=== PATIENT | female | born 1960 | race Caucasian/White ===

== ENCOUNTER → 2016-05-20 | Outpatient (CLI) | payer OTHER | LOC: M WUC 15:27 | PROVIDERS: ATTEND Physician Assistant Medical | DX: R53.83 Other fatigue (principal); R25.2 Cramp and spasm ==

== ENCOUNTER → 2016-06-20 | Outpatient (CLI) | payer OTHER ==
--- NOTE | 2016-06-20 11:24 | REPMRS ---
Patient History The patient states she had a clinical breast exam in Patient is postmenopausal. No known family history of cancer. Digital Woman Screen Mammo: June 20, 2016 - Exam #: [id number] Bilateral CC and MLO view(s) were taken. Technologist: Val Kunz, Technologist Prior study comparison: February 02, 2015, digital woman screen mammo performed at [facility] to [facility]. July 29, 2009, digital bilateral screening mammo performed at [facility] to [facility]. FINDINGS: There are scattered fibroglandular densities. There has been no change in the appearance of the mammogram from the prior studies. There is a mild amount of scattered fibroglandular density which is fairly symmetric. There is no interval development of dominant mass, architectural distortion, or clustered microcalcification suggestive of malignancy. ASSESSMENT: BI-RADS/ACR category 1 mammogram. Negative. Recommendation Routine screening mammogram in 1 year (for women over age 40). This mammogram was interpreted with the aid of an FDA-approved computer-aided dectection system. Electronically Signed By: Srini Noe MD 06/20/16 1124
== END ==
LOC: M WHC 08:54
PROVIDERS: ATTEND Nurse Practitioner Family
DX: Z12.31 Encounter for screening mammogram for malignant neoplasm of breast (principal); Z78.0 Asymptomatic menopausal state

== ENCOUNTER → 2016-08-15 | Outpatient (CLI) | payer OTHER ==
[2016-08-15 16:56] LABS: ANION GAP 2 MEQ/L (8-16); BLOOD UREA NITROGEN 20 MG/DL (7-18); CALCIUM LEVEL 9.3 MG/DL (8.5-10.1); CARBON DIOXIDE LEVEL 32 MEQ/L (21-32); CHLORIDE LEVEL 109 MEQ/L (98-107); CHOLESTEROL LEVEL 257 MG/DL (<200); CREATININE FOR GFR 0.94 MG/DL (0.55-1.02); FREE T4 0.98 NG/DL (0.76-1.46); GLOMERULAR FILTRATION RATE > 60.0 (>51); GLUCOSE, FASTING 93 MG/DL (70-105); MAGNESIUM LEVEL 2.5 MG/DL (1.8-2.4); SODIUM LEVEL 143 MEQ/L (136-145); TRIGLYCERIDES LEVEL 124 MG/DL (<150)
== END ==
LOC: M WUC 12:46
PROVIDERS: ATTEND Family Medicine
DX: R25.2 Cramp and spasm (principal); R63.5 Abnormal weight gain; Z13.6 Encounter for screening for cardiovascular disorders

== ENCOUNTER 2017-02-17 06:49 | Day surgery (SDC) | payer OTHER ==
[~2017-02-17] VITALS: Ht 160 cm; Wt 78.2 kg
[~2017-02-17 06:49] MED LIST: MULTCAP8 PO
[2017-02-17] MEDS ORDERED: LR 1,000 ML IV SCH ×2 (07:00→10:30)
[2017-02-17] MEDS ORDERED: ROCURONIUM BROMIDE 50 MG/5 ML VIAL/SYRINGE As Ordered ONE (07:59)
[2017-02-17] MEDS ORDERED: LIDOCAINE 2% INJ 100 MG/5 ML SDV (FOR ANES.) As Ordered ONE (07:59)
[2017-02-17] MEDS ORDERED: ONDANSETRON 4MG/2ML VIAL (J2405) As Ordered ONE ×2 (07:59→12:18)
[2017-02-17] MEDS ORDERED: PROPOFOL 200 MG/20 ML VIAL As Ordered ONE (07:59)
[2017-02-17] MEDS ORDERED: MIDAZOLAM INJ 2 MG/2 ML VIAL (J2250) As Ordered ONE (07:59)
[2017-02-17] MEDS ORDERED: fentaNYL 100 MCG/2 ML INJECTION (J3010) As Ordered ONE (08:00)
[2017-02-17] MEDS ORDERED: SEVOFLURANE INHAL SOLN 250 ML BTL As Ordered ONE (08:39)
[2017-02-17] MEDS ORDERED: CONRAY-60 60% 50ML VIAL (Q9961) As Ordered ONE (08:41)
[2017-02-17] MEDS ORDERED: GLUCAGON FOR INJ 1 MG VIAL (J1610) As Ordered ONE (08:41)
[2017-02-17] MEDS ORDERED: BUPIVACAINE/EPIN 0.25% 30 ML VIAL As Ordered ONE (08:41)
[2017-02-17] MEDS ORDERED: PHENYLephrine HCL 500 MCG/5 ML (100MCG/ML) SYRINGE (J2370) As Ordered ONE (09:05)
[2017-02-17] MEDS ORDERED: dexameTHASONE 4 MG/ML 1ML VIAL (J1100) As Ordered ONE (09:07)
[2017-02-17] MEDS ORDERED: ePHEDrine SULFATE 25 MG/5 ML(5MG/ML) SYRINGE As Ordered ONE (09:09)
[2017-02-17] MEDS ORDERED: NEOSTIGMINE 10 MG/10 ML VIAL (J2710) As Ordered ONE (09:29)
[2017-02-17] MEDS ORDERED: GLYCOPYRROLATE INJ 0.2 MG/ML 2 ML VIAL As Ordered ONE (09:30)
[2017-02-17] MEDS ORDERED: KETOROLAC 60 MG/2 ML VIAL (J1885) As Ordered ONE (09:33)
[2017-02-17] MEDS ORDERED: SUGAMMADEX SODIUM 500 MG/5 ML VIAL (BRIDION) As Ordered ONE (09:42)
--- NOTE | 2017-02-17 09:57 | RO ---
DATE OF PROCEDURE: 02/17/2017 PREPROCEDURE DIAGNOSIS: Symptomatic gallstones. POSTPROCEDURE DIAGNOSIS: Symptomatic gallstones. PROCEDURE: Laparoscopic cholecystectomy. SURGEON: Dr. Emilio Garrison. 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 ESTIMATED BLOOD LOSS: Minimal. FLUIDS: Crystalloid. DESCRIPTION OF OPERATION: The patient was brought to the operating room and was given general anesthesia. After adequate anesthesia and preoperative antibiotics were given, the patient was prepped and draped in the usual sterile fashion. Next, a supraumbilical incision was made with a skin knife. Blunt dissection was carried down to fascia. Fascia was grasped with Josiah clamps, elevated and Veress needle placed into the abdominal cavity and insufflated to 15 mm of pressure. A dilating 10 mm trocar was placed at the umbilicus and under direct visualization, an epigastric and two lateral trocars were placed. Gallbladder was grasped, retracted superiorly and the neck of the gallbladder was cleared of adhesions from the duodenum/end of the stomach to the gallbladder. These were taken on mostly with blunt dissection but some loose areolar tissue was taken down with hook cautery as well and eventually the neck of the gallbladder was cleared of peritoneum anteriorly and laterally and then once the gallbladder was retracted laterally, the medial aspect of it was cleared of peritoneum where the cystic artery and cystic duct was well visualized. A good window behind it, the neck of the gallbladder was created, then a critical view of safety was obtained at this point and after identifying the cystic duct nicely and isolating it for a relatively good distance. The cystic duct was clipped proximally and distally and transected. The cystic artery was clipped proximally and distally and transected. The gallbladder was removed from the gallbladder bed using electrocautery and placed in an Endo Catch bag and brought out through the umbilicus. The right upper quadrant was copiously irritated until clear. All of the incisions were closed with #4-0 Vicryl after the umbilicus was closed with #0 Vicryl at the fascial layer. Steri-Strips and a dry sterile dressing was applied. The patient was awakened, extubated and brought to the recovery room awake, alert and hemodynamically stable. Sponge and needle counts were correct times two.
[2017-02-17] MEDS ORDERED: PERCOCET 5MG/325MG TAB As Ordered ONE (10:07)
[2017-02-17] MEDS ORDERED: MEPERIDINE INJ 25 MG/ML VIAL (J2175) IV PRN (10:30)
[2017-02-17] MEDS ORDERED: PERCOCET 5MG/325MG TAB PO PRN (10:30)
[2017-02-17] MEDS ORDERED: fentaNYL 100 MCG/2 ML INJECTION (J3010) IV PRN (10:30)
[2017-02-17] MEDS ORDERED: ONDANSETRON 4MG/2ML VIAL (J2405) IV PRN (10:30)
[2017-02-17] MEDS ORDERED: METOCLOPRAMIDE INJ 10MG/2ML VIAL (J2765) IV PRN (10:30)
[2017-02-17 12:45] VITALS: BP 113/78
== END 2017-02-17 13:00 | disposition home or self-care (01) ==
LOC: M SDC 06:49
PROVIDERS: ATTEND Surgery
DX: K80.10 Calculus of gallbladder with chronic cholecystitis without obstruction (principal); K21.9 Gastro-esophageal reflux disease without esophagitis; J45.909 Unspecified asthma, uncomplicated; Z90.710 Acquired absence of both cervix and uterus; Z86.2 Personal history of diseases of the blood and blood-forming organs and certain disorders involving the immune mechanism
CPT/HCPCS: 47562; 88304; J0690; J1100; J1610; J1885; J2250; J2370; J2405; J3010

== ENCOUNTER 2017-03-26 11:45 | Emergency (ER) | payer OTHER ==
[~2017-03-26] VITALS: Ht 162.6 cm; Wt 77.3 kg
[2017-03-26] MEDS ORDERED: KETOROLAC 30 MG/ML VIAL (J1885) IV ONE (12:30)
[2017-03-26 12:44] LABS: BASO % 0.6 % (0.0-1.0); EOS # 0.3 10^3/uL (0.0-0.50); EOS % 4.3 % (0.0-3.0); IMMATURE GRANULOCYTE % 0.3 % (0-0); LYMPH # 2.9 10^3/uL (1.5-4.5); LYMPH % 46.7 % (24.0-44.0); MEAN CORPUSCULAR HEMOGLOBIN 30.1 pg (27.0-33.0); MEAN CORPUSCULAR HGB CONC 33.3 g/dl (32.0-36.5); MEAN CORPUSCULAR VOLUME 90.5 fl (80.0-96.0); MONO # 0.5 10^3/uL (0.0-0.8); NEUTROPHILS # 2.5 10^3/uL (1.8-7.7); NEUTROPHILS % 40.1 % (36.0-66.0); PLATELET COUNT, AUTOMATED 260 10^3/uL (150-450); WHITE BLOOD COUNT 6.3 10^3/uL (4.0-10.0)
[2017-03-26 13:06] LABS: ALBUMIN/GLOBULIN RATIO 1.25 (1.00-1.93); ALKALINE PHOSPHATASE 90 U/L (45-117); ALT/SGPT 34 U/L (12-78); AMYLASE 45 U/L (25-115); ANION GAP 8 MEQ/L (8-16); AST/SGOT 21 U/L (7-37); BILIRUBIN,DIRECT 0.1 MG/DL (0.0-0.2); BILIRUBIN,TOTAL 0.7 MG/DL (0.2-1.0); BLOOD UREA NITROGEN 19 MG/DL (7-18); CALCIUM LEVEL 8.8 MG/DL (8.5-10.1); CARBON DIOXIDE LEVEL 26 MEQ/L (21-32); CHLORIDE LEVEL 108 MEQ/L (98-107); GLOMERULAR FILTRATION RATE > 60.0 (>51); GLUCOSE, FASTING 97 MG/DL (70-105); POTASSIUM SERUM 4.5 MEQ/L (3.5-5.1); SODIUM LEVEL 142 MEQ/L (136-145); TOTAL PROTEIN 7.2 GM/DL (6.4-8.2)
--- NOTE | 2017-03-26 14:21 | REP ---
CT abdomen pelvis without IV or bowel contrast: There are no comparisons. The visualized lung aparicio are unremarkable. The unenhanced hepatic parenchyma, pancreas and spleen are unremarkable. There are surgical clips in the gallbladder fossa. The adrenals and kidneys are unremarkable. Abdominal aorta is unremarkable. There is no bowel distension. Mesentery is unremarkable. Pelvis: There is an appendicolith. The appendix is otherwise unremarkable. There are cecal diverticulum without diverticulitis. There are occasional diverticula in the descending colon without diverticulitis. There is a hysterectomy. Vaginal cuff and adnexa are unremarkable. The bladder is nondistended and cannot be evaluated. Impression: Cholecystectomy. The cecum and descending colon and sigmoid colon diverticula without diverticulitis. Hysterectomy. The appendix contains an appendicolith but is otherwise unremarkable. No ascites or adenopathy. No bowel distension or obstruction. No hydronephrosis. Otherwise, negative CT of the abdomen pelvis. Signed by Anil Ibarra MD 03/26/2017 02:13 P
[2017-03-26] MEDS ORDERED: NAPR500T PO (14:34)
[2017-03-26 14:45] VITALS: BP 118/82
== END 2017-03-26 14:43 | disposition home or self-care (01) ==
LOC: M ED 11:45
DX: S39.011A Strain of muscle, fascia and tendon of abdomen, initial encounter (principal); S29.012A Strain of muscle and tendon of back wall of thorax, initial encounter; X50.0XXA Overexertion from strenuous movement or load, initial encounter; Y92.89 Other specified places as the place of occurrence of the external cause; Y93.89 Activity, other specified; Y99.8 Other external cause status; E66.9 Obesity, unspecified; Z88.5 Allergy status to narcotic agent
CPT/HCPCS: 74176; 80048; 80076; 81001; 82150; 83690; 85025; 96374; 99284; J1885

== ENCOUNTER → 2017-06-01 | Outpatient (REF) | payer OTHER ==
[2017-06-01 12:52] LABS: INFLUENZA A AMPLIFICATION NEGATIVE (NEGATIVE); INFLUENZA B AMPLIFICATION NEGATIVE (NEGATIVE)
== END ==
LOC: M LAB REF 11:35
DX: Z11.59 Encounter for screening for other viral diseases (principal)

== ENCOUNTER → 2020-01-30 | Outpatient (CLI) | payer OTHER ==
[~2020-01-30] MED LIST changes: +NAPR-837 PO
--- NOTE | 2020-01-30 12:18 | REPMRS ---
Patient History The patient states she had a clinical breast exam in 01/2020. Patient is postmenopausal. No known family history of cancer. No Hormone Replacement Therapy 3D TOMOSYNTHESIS WAS PERFORMED. [facility]%. Volpara breast density b. Digital Woman Screen Mammo: January 30, 2020 - Exam #: [id number] Bilateral CC and MLO view(s) were taken. Technologist: Armida Brennan, Technologist Prior study comparison: June 20, 2016, digital woman screen mammo performed at [facility]. February 02, 2015, digital woman screen mammo performed at [facility]. FINDINGS: There are scattered fibroglandular densities. There has been no change in the appearance of the mammogram from the prior studies. There is a mild amount of residual fibroglandular tissue which is fairly symmetric. There is no interval development of dominant mass, architectural distortion, or clustered microcalcification suggestive of malignancy. Assessment: BI-RADS/ACR category 1 mammogram. Negative Mammogram. Recommendation Routine screening mammogram in 1 year (for women over age 40). This mammogram was interpreted with the aid of an FDA-approved computer-aided dectection system. Electronically Signed By: Anil Muir MD 01/30/20 1810
== END ==
LOC: M WHC 10:58
PROVIDERS: ATTEND Nurse Practitioner Family
DX: Z12.31 Encounter for screening mammogram for malignant neoplasm of breast (principal)

== ENCOUNTER → 2021-03-11 | Outpatient (CLI) | payer OTHER, SELFPAY | LOC: M WHC 08:13 | PROVIDERS: ATTEND Nurse Practitioner Women's Health | DX: Z12.31 Encounter for screening mammogram for malignant neoplasm of breast (principal) ==

== ENCOUNTER → 2022-06-17 | Outpatient (CLI) | payer OTHER | LOC: M WHC 08:04 | PROVIDERS: ATTEND Nurse Practitioner Family | DX: Z12.31 Encounter for screening mammogram for malignant neoplasm of breast (principal) ==

== ENCOUNTER → 2022-06-30 | Outpatient (CLI) | payer OTHER ==
[2022-06-30 14:02] LABS: BASO % 0.6 % (0.0-1.0); EOS # 0.2 10^3/uL (0.0-0.5); EOS % 3.4 % (0.0-3.0); HEMATOCRIT 43.4 % (36.0-47.0); HEMOGLOBIN 14.4 g/dl (12.0-15.5); LYMPH # 2.6 10^3/uL (1.5-5.0); MEAN CORPUSCULAR HEMOGLOBIN 30.9 pg (27.0-33.0); MEAN CORPUSCULAR HGB CONC 33.2 g/dl (32.0-36.5); MEAN CORPUSCULAR VOLUME 93.1 fl (80.0-96.0); MONO # 0.5 10^3/uL (0.0-0.8); MONO % 7.9 % (2.0-8.0); NEUTROPHILS # 3.4 10^3/uL (1.5-8.5); NEUTROPHILS % 49.7 % (36.0-66.0); PLATELET COUNT, AUTOMATED 244 10^3/uL (150-450); RED BLOOD COUNT 4.66 10^6/uL (4.00-5.40); WHITE BLOOD COUNT 6.7 10^3/uL (4.0-10.0)
[2022-06-30 14:35] LABS: FREE T4 1.08 NG/DL (0.89-1.76); THYROID STIMULATING HORMONE 2.614 uIU/ML (0.55-4.78)
[2022-06-30 14:44] LABS: ALBUMIN 3.8 G/DL (3.2-5.2); ALKALINE PHOSPHATASE 80 U/L (46-116); ALT/SGPT 25 U/L (7.0-40); AST/SGOT 16 U/L (<34); BILIRUBIN,TOTAL 0.6 MG/DL (0.3-1.2); BLOOD UREA NITROGEN 20 MG/DL (9-23); CALCIUM LEVEL 9.3 MG/DL (8.5-10.1); CARBON DIOXIDE LEVEL 29 MMOL/L (20-31); CHLORIDE LEVEL 107 MMOL/L (98-107); CHOLESTEROL LEVEL 246 MG/DL (<200); CREATININE FOR GFR 0.88 MG/DL (0.55-1.30); GLOMERULAR FILTRATION RATE > 60.0 (>51); GLUCOSE, FASTING 94 MG/DL (60-100); LDL CHOLESTEROL 164.6 MG/DL (<100); POTASSIUM SERUM 4.7 MMOL/L (3.5-5.1); SODIUM LEVEL 141 MMOL/L (136-145); TOTAL PROTEIN 6.5 G/DL (5.7-8.2); TRIGLYCERIDES LEVEL 92 MG/DL (<150)
== END ==
LOC: M PLALAB 10:05
PROVIDERS: ATTEND Physician Assistant
DX: Z00.00 Encounter for general adult medical examination without abnormal findings (principal); R63.5 Abnormal weight gain

== ENCOUNTER → 2023-07-03 | Outpatient (CLI) | payer OTHER | LOC: M WHC 10:35 | PROVIDERS: ATTEND Nurse Practitioner Family | DX: Z12.31 Encounter for screening mammogram for malignant neoplasm of breast (principal) ==

== ENCOUNTER → 2023-07-03 | Outpatient (REF) | payer OTHER | LOC: M SFHCWAGY 10:39 | PROVIDERS: ATTEND Nurse Practitioner Family | DX: Z12.72 Encounter for screening for malignant neoplasm of vagina (principal) ==

== ENCOUNTER → 2023-08-08 | Outpatient (CLI) | payer OTHER ==
[2023-08-08 14:00] LABS: BASO % 0.6 % (0.0-1.0); EOS # 0.4 10^3/uL (0.0-0.5); EOS % 5.4 % (0.0-3.0); HEMATOCRIT 40.8 % (36.0-47.0); HEMOGLOBIN 13.4 g/dl (12.0-15.5); LYMPH # 2.4 10^3/uL (1.5-5.0); LYMPH % 35.9 % (24.0-44.0); MEAN CORPUSCULAR HGB CONC 32.8 g/dl (32.0-36.5); MEAN CORPUSCULAR VOLUME 94.4 fl (80.0-96.0); MONO # 0.5 10^3/uL (0.0-0.8); MONO % 7.1 % (2.0-8.0); NEUTROPHILS # 3.4 10^3/uL (1.5-8.5); NEUTROPHILS % 50.5 % (36.0-66.0); PLATELET COUNT, AUTOMATED 239 10^3/uL (150-450); RED BLOOD COUNT 4.32 10^6/uL (4.00-5.40); WHITE BLOOD COUNT 6.7 10^3/uL (4.0-10.0)
[2023-08-08 14:16] LABS: HEMOGLOBIN A1c 5.2 % (4.0-6.0)
[2023-08-08 14:30] LABS: ALBUMIN 3.6 G/DL (3.2-5.2); ALKALINE PHOSPHATASE 75 U/L (46-116); ALT/SGPT 26 U/L (7.0-40); AST/SGOT 21 U/L (<34); BILIRUBIN,TOTAL 0.4 MG/DL (0.3-1.2); BLOOD UREA NITROGEN 20 MG/DL (9-23); CALCIUM LEVEL 9.7 MG/DL (8.3-10.6); CARBON DIOXIDE LEVEL 29 MMOL/L (20-31); CHLORIDE LEVEL 106 MMOL/L (98-107); CHOLESTEROL LEVEL 244 MG/DL (<200); CHOLESTEROL RISK RATIO 3.87 (<5); CREATININE FOR GFR 0.89 MG/DL (0.55-1.30); FREE T4 1.05 NG/DL (0.89-1.76); GLOMERULAR FILTRATION RATE > 60.0 (>45); GLUCOSE, FASTING 93 MG/DL (74-106); LDL CHOLESTEROL 162.2 MG/DL (<100); POTASSIUM SERUM 4.6 MMOL/L (3.5-5.1); SODIUM LEVEL 140 MMOL/L (136-145); TOTAL PROTEIN 6.2 G/DL (5.7-8.2); TRIGLYCERIDES LEVEL 94 MG/DL (<150)
[2023-08-08 14:31] LABS: VITAMIN B12 LEVEL 486 PG/ML (211-911)
[2023-08-08 14:32] LABS: TOTAL 25(OH) VITAMIN D 30.7 NG/ML (20.0-100.0)
== END ==
LOC: M PLALAB 08:37
PROVIDERS: ATTEND Physician Assistant
DX: Z00.00 Encounter for general adult medical examination without abnormal findings (principal); Z13.220 Encounter for screening for lipoid disorders; Z13.1 Encounter for screening for diabetes mellitus; E66.9 Obesity, unspecified; G47.62 Sleep related leg cramps; Z68.39 Body mass index [BMI] 39.0-39.9, adult

== ENCOUNTER → 2023-08-08 | Outpatient (CLI) | payer OTHER | LOC: M WHC 08:35 | PROVIDERS: ATTEND Nurse Practitioner Family | DX: Z12.31 Encounter for screening mammogram for malignant neoplasm of breast (principal) ==

== ENCOUNTER → 2024-07-24 | Outpatient (CLI) | payer OTHER ==
[2024-07-24 14:13] LABS: HEMOGLOBIN 13.8 g/dl (12.0-15.5); MEAN CORPUSCULAR HEMOGLOBIN 30.6 pg (27.0-33.0); MEAN CORPUSCULAR HGB CONC 32.9 g/dl (32.0-36.5); MEAN CORPUSCULAR VOLUME 93.1 fl (80.0-96.0); PLATELET COUNT, AUTOMATED 171 10^3/uL (150-450); RED BLOOD COUNT 4.51 10^6/uL (4.00-5.40); WHITE BLOOD COUNT 4.5 10^3/uL (4.0-10.0)
[2024-07-24 14:30] LABS: URIC ACID 3.9 MG/DL (3.1-7.8)
[2024-07-24 14:33] LABS: C REACTIVE PROTEIN QUANTITATIV 0.61 MG/DL (<1.0); IRON (FE) 179 UG/DL (50-170); PERCENT SATURATION 66.3 % (13.2-45.0); RHEUMATOID FACTOR QUANT < 3.5 IU/ML (<14); TOTAL IRON BINDING CAPACITY 270 UG/DL (250-425)
[2024-07-24 14:34] LABS: ALBUMIN 3.7 G/DL (3.2-5.2); ALKALINE PHOSPHATASE 75 U/L (35-104); ALT/SGPT 29 U/L (7.0-40); AST/SGOT 21 U/L (<34); BILIRUBIN,TOTAL 0.4 MG/DL (0.3-1.2); BLOOD UREA NITROGEN 11 MG/DL (9-23); CARBON DIOXIDE LEVEL 27 MMOL/L (20-31); CHLORIDE LEVEL 105 MMOL/L (98-107); CHOLESTEROL LEVEL 211 MG/DL (<200); CHOLESTEROL RISK RATIO 3.58 (<5); CREATININE FOR GFR 0.89 MG/DL (0.55-1.30); FERRITIN 189.3 NG/ML (7.3-270.7); FOLATE > 24.0 NG/ML (>5.4); FREE T4 1.25 NG/DL (0.89-1.76); GLOMERULAR FILTRATION RATE 73.7 (>45); GLUCOSE, FASTING 92 MG/DL (74-106); HDL CHOLESTEROL 58.9 MG/DL (>40); LDL CHOLESTEROL 125.7 MG/DL (<100); NON-HDL-C 152.1 MG/DL; POTASSIUM SERUM 4.1 MMOL/L (3.5-5.1); SODIUM LEVEL 139 MMOL/L (136-145); TOTAL PROTEIN 6.5 G/DL (5.7-8.2); TRIGLYCERIDES LEVEL 132 MG/DL (<150); VITAMIN B12 LEVEL 524 PG/ML (211-911)
[2024-07-24 14:37] LABS: TOTAL 25(OH) VITAMIN D 62.4 NG/ML (20.0-100.0)
[2024-07-24 14:45] LABS: HEMOGLOBIN A1c 4.8 % (4.0-6.0)
[2024-07-24 14:50] LABS: ATYPICAL LYMPH 9 % (0-5); EOSINOPHILS 14 % (0-3); LYMPHOCYTES 37 % (16-44); MONOCYTES 6 % (0-5); NEUTROPHILS 33 % (28-66)
[2024-07-24 14:51] LABS: ANISOCYTOSIS 1+; PLATELET ESTIMATE NORMAL (NORMAL); POIKILOCYTOSIS 1+
[2024-07-24 19:28] LABS: ERYTHROCYTE SEDIMENTATION RATE 7 mm/hr (0-30)
[2024-07-25 13:36] LABS: ANA SCREEN, IFA NEGATIVE (NEGATIVE)
[2024-07-25 16:11] LABS: ALMOND IGE FOOD < 0.10 kU/L (<0.10); BERMUDA GRASS IGE < 0.10 kU/L (<0.10); BIRCH IGE < 0.10 kU/L (<0.10); BRAZIL NUT CLASS IGE <0.10 ABSENT (<0.10); BRAZIL NUT IGE < 0.10 kU/L (<0.10); CASHEW NUT IGE FOOD < 0.10 kU/L (<0.10); CODFISH IGE FOOD < 0.10 kU/L (<0.10); COMMON RAGWEED SHORT IGE < 0.10 kU/L (<0.10); COWS MILK FOOD < 0.10 kU/L (<0.10); D001 IGE D PTERONYSSINUS 1.07 kU/L (<0.10); D002-IGE D FARINAE 0.77 kU/L (<0.10); E001-IGE CAT DANDER < 0.10 kU/L (<0.10); E005-IGE DOG DANDER < 0.10 kU/L (<0.10); EGG WHITE FOOD < 0.1 kU/L (<0.10); ELM IGE < 0.10 kU/L (<0.10); HAZELNUT IGE FOOD < 0.10 kU/L (<0.10); I006 IGE COCKROACH < 0.10 kU/L (<0.10); IMMUNOGLOBULIN E FOR ALLERGENS 8 kU/L (<OR=114); M002 IGE CLADOSPORIUM HERBARU < 0.10 kU/L (<0.10); M003 IGE ASPERGILLUS FUMIGATU < 0.10 kU/L (<0.10); M006 IGE ALTERNIA ALTERNATA < 0.10 kU/L (<0.10); M1-PENICILLIUM NOTATUM < 0.10 kU/L (<0.10); MACADAMIA NUT < 0.10 kU/L (<0.10); MACADAMIA NUT CLASS IGE <0.10 ABSENT (<0.10); MOUSE URINE IGE < 0.10 kU/L (<0.10); MUGWORT IGE < 0.10 kU/L (<0.10); OAK IGE < 0.10 kU/L (<0.10); PEANUT IGE FOOD < 0.10 kU/L (<0.10); ROUGH PIGWEED IGE < 0.10 kU/L (<0.10); SALMON IGE FOOD < 0.10 kU/L (<0.10); SCALLOP IGE FOOD < 0.10 kU/L (<0.10); SESAME SEED IGE FOOD < 0.10 kU/L (<0.10); SHEEP SORREL IGE < 0.10 kU/L (<0.10); SHRIMP IGE FOOD < 0.10 kU/L (<0.10); SOYBEAN IGE FOOD < 0.10 kU/L (<0.10); SYCAMORE IGE < 0.10 kU/L (<0.10); T001-IGE MAPLE BOX ELDER < 0.10 kU/L (<0.10); T006-IGE MOUNTAIN CEDAR < 0.10 kU/L (<0.10); T014 COTTONWOOD IGE < 0.10 kU/L (<0.10); TIMOTHY GRASS IGE 0.16 kU/L (<0.10); TUNA IGE FOOD < 0.10 kU/L (<0.10); WALNUT IGE FOOD < 0.10 kU/L (<0.10); WALNUT TREE IGE < 0.10 kU/L (<0.10); WHEAT IGE FOOD < 0.10 kU/L (<0.10); WHITE ASH IGE < 0.10 kU/L (<0.10); WHITE MULBERRY IGE < 0.10 kU/L (<0.10)
== END ==
LOC: M PLALAB 10:01
PROVIDERS: ATTEND Nurse Practitioner Family
DX: R53.83 Other fatigue (principal); Z13.220 Encounter for screening for lipoid disorders; R19.5 Other fecal abnormalities